=== PATIENT | male | born 1955 | race Caucasian/White ===

== ENCOUNTER 2016-08-22 15:49 | Emergency (ER) | payer OTHER ==
[~2016-08-22] VITALS: Ht 185.4 cm; Wt 113.4 kg
[~2016-08-22 15:49] MED LIST: BUPR-51 PO; QUET400T3 PO; SERT100T PO
--- NOTE | 2016-08-22 16:04 | NUR ---
PT AMBULATORY TO ER BED 08 AACCOMPANIED BY FAMILY. C/O ABDOMINAL DISCOMFORT, BLOATING SINCE LAST NIGHT. ALSO C/O N/V/D. GOWNED AND PLACED ON MONITOR. PT APPEARS ANXIOUS, HYPERVERBAL. VSS. AWAITING MD ELLIS.
--- NOTE | 2016-08-22 16:10 | NUR ---
STEVO GRULLON AT BEDSIDE FOR EVAL.
[2016-08-22] MEDS ORDERED: ONDANSETRON HCL/PF 4 MG/2 ML VIAL IV STA (16:14)
[2016-08-22] MEDS ORDERED: KETOROLAC TROMETHAMINE INJ 30 MG/ML VIAL IV STA (16:16)
--- NOTE | 2016-08-22 16:25 | NUR ---
IV LINE STARTED BLOOD DRAWN AND SENT TO LAB.
[2016-08-22] MEDS ORDERED: IV NS 0.9% 1,000 ML ONE (16:29)
[2016-08-22] MEDS ORDERED: IV SET PRIMARY 1 EA INFUS.SET MC ONE (16:29)
[2016-08-22] MEDS ORDERED: ONDANSETRON HCL/PF 4 MG/2 ML VIAL ONE (16:29)
[2016-08-22] MEDS ORDERED: KETOROLAC TROMETHAMINE INJ 30 MG/ML VIAL ONE (16:29)
[2016-08-22] MEDS ORDERED: ACETAMINOPHEN ES 500 MG TABLET ONE (16:29)
[2016-08-22] MEDS ORDERED: ACETAMINOPHEN ES 500 MG TABLET PO ONE (16:30)
[2016-08-22] MEDS ORDERED: IV NS 0.9% 1,000 ML BAG IV ONE (16:30)
[2016-08-22 16:35] LABS: BASOPHILS # (AUTO) 0.2 /CMM (0.0-0.2); HEMATOCRIT 46 % (39-51); HEMOGLOBIN 15.8 g/dL (13.5-17.5); LYMPHOCYTES # (AUTO) 0.4 /CMM (0.8-4.8); LYMPHOCYTES % (AUTO) 3.4 % (20.0-44.0); MEAN CORPUSCULAR HEMOGLOBIN 30 PG (26.0-33.0); MEAN CORPUSCULAR HGB CONC 34 g/dl (31.0-36.0); MEAN CORPUSCULAR VOLUME 88 fL (80-96); MONOCYTES # (AUTO) 0.6 /CMM (0.1-1.30); MONOCYTES % (AUTO) 5.5 % (2.0-12.0); NEUTROPHILS # (AUTO) 9.4 /CMM (1.8-8.9); NEUTROPHILS % (AUTO) 89.1 % (43.0-81.0); PLATELET COUNT (AUTO) 234 /CMM (150-450); RED BLOOD CELL COUNT(AUTO) 5.27 MIL/uL (4.5-6.0); WHITE BLOOD COUNT (AUTO) 10.6 K/uL (4.3-11.0)
[2016-08-22 16:47] LABS: CALCIUM, SERUM 8.8 mg/dL (8.5-10.1); CREATININE 1.6 mg/dL (0.6-1.3); POTASSIUM 3.7 mmol/L (3.5-5.1)
[2016-08-22 16:53] LABS: ALBUMIN 4.1 g/dL (3.4-5.0); BILIRUBIN,DIRECT 0.1 mg/dL (0.0-0.2); BILIRUBIN,TOTAL 0.8 mg/dL (0.2-1.0); TOTAL PROTEIN, SERUM 7.7 g/dL (6.4-8.2)
[2016-08-22 17:05] LABS: APPEARANCE,URINE Clear (CLEAR); BILIRUBIN,URINE Negative (NEGATIVE); BLOOD, URINE Negative Ery/uL (NEGATIVE); COLOR,URINE Yellow (YELLOW); KETONES,URINE Negative (NEGATIVE); LEUKOCYTE ESTERASE ,URINE Negative (NEGATIVE); NITRITE, URINE Negative (NEGATIVE); PH,URINE 5.5 (5.0-8.0); PROTEIN,URINE 30 mg/dl (NEGATIVE); UGLUCOSE Negative (NEGATIVE); UROBILINOGEN,URINE 0.2 EU/dL (0.2)
[2016-08-22 17:21] LABS: ADD URINE CULTURE NO; BACTERIA,URINE Rare /HPF (None Seen); RBC,URINE 0-2 /HPF (0-2); SQUAMOUS EPITHELIAL CELL,UR Rare /HPF (None Seen); WBC,URINE 0-2 /HPF (0-3)
[2016-08-22 17:41] VITALS: BP 134/92
--- NOTE | 2016-08-22 17:41 | NUR ---
Patient discharged to home in stable condition. Written and verbal after care instructions given. Patient verbalizes understanding of instruction.IV removed. Catheter intact and site benign. Pressure and 4x4 applied to site. No bleeding noted.
== END 2016-08-22 17:42 | disposition home or self-care (01) ==
LOC: ER 15:51
DX: R11.2 Nausea with vomiting, unspecified (principal); F32.9 Major depressive disorder, single episode, unspecified; I10 Essential (primary) hypertension
CPT/HCPCS: 36415; 80048-TC; 80076-TC; 81000-TC; 83690-TC; 85025-TC; A4606; J1885; J2405; J7030; Z7610

== ENCOUNTER 2018-07-18 01:50 | Emergency (ER) | payer MEDICARE, OTHER ==
[~2018-07-18] VITALS: Ht 185.4 cm; Wt 113.4 kg
[~2018-07-18 01:50] MED LIST changes: -QUET400T3 PO; +QUET400T5 PO
[2018-07-18 02:15] VITALS: BP 133/68
[2018-07-18] MEDS ORDERED: IBUPROFEN 400 MG TABLET ONE (02:22)
[2018-07-18] MEDS ORDERED: IBUPROFEN 400 MG TABLET PO ONE (02:30)
== END 2018-07-18 02:30 | disposition home or self-care (01) ==
LOC: ER 01:56
DX: M54.16 Radiculopathy, lumbar region (principal); I10 Essential (primary) hypertension; F32.9 Major depressive disorder, single episode, unspecified; F14.10 Cocaine abuse, uncomplicated; Z60.2 Problems related to living alone

== ENCOUNTER 2019-05-30 07:37 | Emergency (ER) | payer MEDICARE, MEDICAID ==
[~2019-05-30] VITALS: Ht 182.9 cm; Wt 99.8 kg
--- NOTE | 2019-05-30 07:47 | NUR ---
PT BIB SELF C/O HEADACHE AND DIZZINESS SINCE THIS MORNING , PT IS AAOX4, NOT IN RESPIRATORY DISTRESS, HOOKED TO MONITOR, KEPT RESTED AND COMFORTABLE, WILL CONTINUE TO MONITOR.
--- NOTE | 2019-05-30 07:52 | NUR ---
AT BEDSIDE FOR EVAL.
[2019-05-30] MEDS ORDERED: IV NS 0.9% 1,000 ML BAG IV ONE (08:00)
--- NOTE | 2019-05-30 08:00 | NUR ---
PT IV LINE ESTABLISHED, BLOOD DRAWN AND SENT TO LAB.
--- NOTE | 2019-05-30 08:05 | NUR ---
RUBBER PRESS TENDER AT BEDSIDE FOR XRAY.
[2019-05-30 08:07] LABS: BASOPHILS % (AUTO) 0.6 % (0.0-2.0); EOSINOPHILS % (AUTO) 2.4 % (0.0-6.0); HEMATOCRIT 39 % (39-51); HEMOGLOBIN 13.2 g/dL (13.5-17.5); LYMPHOCYTES # (AUTO) 1.6 /CMM (0.8-4.8); MEAN CORPUSCULAR HGB CONC 34 g/dl (31.0-36.0); MEAN CORPUSCULAR VOLUME 91 fL (80-96); MONOCYTES # (AUTO) 0.4 /CMM (0.1-1.30); MONOCYTES % (AUTO) 8.1 % (2.0-12.0); NEUTROPHILS # (AUTO) 3.2 /CMM (1.8-8.9); NEUTROPHILS % (AUTO) 58.9 % (43.0-81.0); PLATELET COUNT (AUTO) 229 /CMM (150-450); WHITE BLOOD COUNT (AUTO) 5.4 K/uL (4.3-11.0)
[2019-05-30 08:15] LABS: CALCIUM, SERUM 9.7 mg/dL (8.5-10.1); CREATININE 1.3 mg/dL (0.6-1.3); POTASSIUM 4.3 mmol/L (3.5-5.1)
[2019-05-30 08:21] LABS: BILIRUBIN,DIRECT 0.1 mg/dL (0.0-0.2); BILIRUBIN,TOTAL 0.4 mg/dL (0.2-1.0); TOTAL PROTEIN, SERUM 7.5 g/dL (6.4-8.2)
[2019-05-30 09:11] VITALS: BP 138/81
--- NOTE | 2019-05-30 09:11 | NUR ---
IV removed. Catheter intact and site benign. Pressure and 4x4 applied to site. No bleeding noted. Patient discharged to home in stable condition. Written and verbal after care instructions given. Patient verbalizes understanding of instruction.
== END 2019-05-30 09:11 | disposition home or self-care (01) ==
LOC: ER 07:37
DX: E86.0 Dehydration (principal); R42 Dizziness and giddiness; I44.4 Left anterior fascicular block; I10 Essential (primary) hypertension; F32.9 Major depressive disorder, single episode, unspecified; Z60.2 Problems related to living alone; Z79.899 Other long term (current) drug therapy
CPT/HCPCS: 36415; 71045; 80048; 80076; 85025; 93005; 96360; 99285; J7030

== ENCOUNTER 2019-08-17 03:19 | Emergency (ER) | payer MEDICARE, OTHER ==
[~2019-08-17] VITALS: Ht 185.4 cm; Wt 115.7 kg
[2019-08-17] MEDS: IV NS 0.9% 1,000 ML BAG IV ONE ×2 (03:34→04:37)
--- NOTE | 2019-08-17 03:43 | NUR ---
PATIENT CAME TO ER BIB RA TO BED 7 C/O WEAKNESS. 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 AAOX4. NO SOB. BREATHING EVENLY AND UNLABORED ON ROOM AIR. CONNECTED TO MONITOR.
[2019-08-17 03:49] LABS: BASOPHILS % (AUTO) 0.5 % (0.0-2.0); HEMATOCRIT 33 % (39-51); HEMOGLOBIN 11.1 g/dL (13.5-17.5); LYMPHOCYTES # (AUTO) 1.3 /CMM (0.8-4.8); LYMPHOCYTES % (AUTO) 19.1 % (20.0-44.0); MEAN CORPUSCULAR HGB CONC 34 g/dl (31.0-36.0); MEAN CORPUSCULAR VOLUME 91 fL (80-96); MONOCYTES # (AUTO) 0.8 /CMM (0.1-1.30); MONOCYTES % (AUTO) 11.1 % (2.0-12.0); NEUTROPHILS # (AUTO) 4.7 /CMM (1.8-8.9); NEUTROPHILS % (AUTO) 67.3 % (43.0-81.0); PLATELET COUNT (AUTO) 212 /CMM (150-450); RED BLOOD CELL COUNT(AUTO) 3.58 MIL/uL (4.5-6.0)
[2019-08-17 04:01] LABS: ALANINE AMINOTRANSFERASE 26 U/L (12-78); ALBUMIN 3.3 g/dL (3.4-5.0); ALKALINE PHOSPHATASE 98 U/L (46-116); ASPARTATE AMINOTRANSFERASE 13 U/L (15-37); BILIRUBIN,DIRECT 0.1 mg/dL (0.0-0.2); BILIRUBIN,TOTAL 0.6 mg/dL (0.2-1.0); CALCIUM, SERUM 8.6 mg/dL (8.5-10.1); CARBON DIOXIDE 29 mmol/L (21-32); CHLORIDE 104 mmol/L (98-107); CREATININE 2.5 mg/dL (0.6-1.3); GLUCOSE 185 mg/dL (74-106); POTASSIUM 3.7 mmol/L (3.5-5.1); SALICYLATE 0.5 mg/dL (2.8-20.0); SODIUM SERUM 139 mmol/L (136-145); TOTAL PROTEIN, SERUM 5.9 g/dL (6.4-8.2); UREA NITROGEN, BLOOD 24 mg/dL (7-18)
[2019-08-17 04:02] LABS: ACETAMINOPHEN 0 ug/ml (10-30); ALCOHOL, BLOOD < 3 mg/dL (0-0)
[2019-08-17 05:11] LABS: APPEARANCE,URINE Clear (CLEAR); BILIRUBIN,URINE SMALL (NEGATIVE); BLOOD, URINE Negative Ery/uL (NEGATIVE); COLOR,URINE Dark (YELLOW); KETONES,URINE Negative (NEGATIVE); LEUKOCYTE ESTERASE ,URINE Negative (NEGATIVE); NITRITE, URINE Negative (NEGATIVE); PH,URINE 5.5 (5.0-8.0); PROTEIN,URINE 30 mg/dl (NEGATIVE); UGLUCOSE Negative (NEGATIVE); UROBILINOGEN,URINE 0.2 EU/dL (0.2)
[2019-08-17 05:20] VITALS: BP 128/74
--- NOTE | 2019-08-17 05:20 | NUR ---
IV removed. Catheter intact and site benign. Pressure and 4x4 applied to site. No bleeding noted.
--- NOTE | 2019-08-17 05:20 | NUR ---
Patient discharged to home in stable condition. Written and verbal after care instructions given. Patient verbalizes understanding of instruction.
[2019-08-17 05:50] LABS: BACTERIA,URINE Few /HPF (None Seen); CALCIUM OXALATE CRYSTALS,UR Few /HPF (None Seen); MUCUS,URINE Moderate /LPF (None Seen); RBC,URINE 0-2 /HPF (0-2); SQUAMOUS EPITHELIAL CELL,UR Rare /HPF (None Seen)
== END 2019-08-17 05:21 | disposition home or self-care (01) ==
LOC: ER 03:19
DX: I95.1 Orthostatic hypotension (principal); R53.1 Weakness; F15.10 Other stimulant abuse, uncomplicated; R42 Dizziness and giddiness; F32.9 Major depressive disorder, single episode, unspecified; Z60.2 Problems related to living alone; Z79.899 Other long term (current) drug therapy
CPT/HCPCS: 36415; 80048; 80076; 80305; 80307; 80329; 81001; 82962; 85025; 87086; 93005; 96360; 96361; 99284; G0480; J7030 ×2; 81000-TC

== ENCOUNTER 2019-12-31 23:08 | Emergency (ER) | payer MEDICARE, OTHER ==
[~2019-12-31] VITALS: Ht 185.4 cm; Wt 117.9 kg
--- NOTE | 2019-12-31 23:27 | NUR ---
PT BIBSELF C/O R WRIST PAIN S/P SLIP AND FALL AT 7PM. PER ASSESSMENT VISHNUIES KO. GUARDADO AT BEDSIDE FOR EVAL. VSS.
[2019-12-31] MEDS ORDERED: IBUPROFEN 600 MG TABLET ONE (23:35)
--- NOTE | 2019-12-31 23:40 | NUR ---
RADIOLOGY AT BEDSIDE
[2020-01-01] MEDS ORDERED: IBUPROFEN 600 MG TABLET PO ONE
--- NOTE | 2020-01-01 00:15 | NUR ---
Patient discharged to home in stable condition. Written and verbal after care instructions given. Patient verbalizes understanding of instruction. ambulatory with a steady gait
[2020-01-01 00:16] VITALS: BP 127/64
== END 2020-01-01 00:16 | disposition home or self-care (01) ==
LOC: ER 23:11
DX: S60.221A Contusion of right hand, initial encounter (principal); I10 Essential (primary) hypertension; F32.9 Major depressive disorder, single episode, unspecified; Z60.2 Problems related to living alone; Z79.899 Other long term (current) drug therapy; W01.0XXA Fall on same level from slipping, tripping and stumbling without subsequent striking against object, initial encounter; Y93.89 Activity, other specified; Y92.091 Bathroom in other non-institutional residence as the place of occurrence of the external cause; Y99.8 Other external cause status
CPT/HCPCS: 73130-TC

== ENCOUNTER 2021-02-08 10:57 | Emergency (ER) | payer OTHER ==
[~2021-02-08] VITALS: Ht 185.4 cm; Wt 113.4 kg
[~2021-02-08 10:57] MED LIST changes: -BUPR-51 PO; +BUPR-54 PO
--- NOTE | 2021-02-08 11:02 | NUR ---
CALLED TO TRIAGE, NO ANSWER
[2021-02-08 11:10] VITALS: BP 131/79
--- NOTE | 2021-02-08 11:11 | NUR ---
TO ER BED 8, C/O NAUSEA, FEVER, CHILLS, EAR DISCOMFORT SINCE LAST NIGHT, TEMP NOT TAKEN AT HOME, DID NOT TAKE ANY MEDS EITHER, AFEBRILE UPON ARRIVAL, AAOX3, BREATHING EVEN AND NON LABORED, AWAITING MD ELLIS
[2021-02-08] MEDS ORDERED: CARB15DR12 EACH EAR (11:28)
[2021-02-08] MEDS ORDERED: ONDA4TAB11 PO (11:28)
--- NOTE | 2021-02-08 11:52 | NUR ---
Patient discharged to home in stable condition. Written and verbal after care instructions given. Patient verbalizes understanding of instruction.
== END 2021-02-08 11:52 | disposition home or self-care (01) ==
LOC: ER 11:08
DX: H61.21 Impacted cerumen, right ear (principal); K29.70 Gastritis, unspecified, without bleeding; I10 Essential (primary) hypertension; F32.9 Major depressive disorder, single episode, unspecified; Z60.2 Problems related to living alone; Z79.899 Other long term (current) drug therapy

== ENCOUNTER 2021-03-21 21:14 | Inpatient (IN) | payer OTHER ==
[~2021-03-21] VITALS: Ht 182.9 cm; Wt 113.4 kg
[~2021-03-21 21:14] MED LIST changes: +CARB15DR12 EACH EAR; +ONDA4TAB11 PO
--- NOTE | 2021-03-21 21:39 | NUR ---
BIBS WALKED IN TO ER UP TO THE [facility]. TO ER BED 1. AAOX4. NOT IN RESP DISTRESS. AMBULATORY. CAME IN FOR L SIDED CHEST PAIN X 1 HR DAY CARE HOME PROVIDER NON RADIATING PRESSURE AND TIGHT 5/10. PT SYNCOPIZE WHILE BEING TRIAGED, HE ALL OF A SUDDEN DROPPED THE THINGS HIS HOLDING AND HAD TO WAKE UP THE PATIENT. PT WAS NOTED COLD, CLAMMY AND DIAPHORETIC. EKG DONE AT BEDSIDE. HOOKED PN MONITOR AND MD AT BEDSIDE WHILE BEING TRAIGED.
--- NOTE | 2021-03-21 21:40 | NUR ---
18G IV STARTED IN [facility]. LABS AND CULTURES COLLECTED AND SENT TO LAB.
--- NOTE | 2021-03-21 21:43 | NUR ---
XRAY AT BEDSIDE
[2021-03-21 21:53] LABS: BASOPHILS # (AUTO) 0.1 K/uL (0.0-0.2); BASOPHILS % (AUTO) 0.8 % (0.0-2.0); EOSINOPHILS % (AUTO) 0.9 % (0.0-6.0); HEMATOCRIT 43 % (39-51); HEMOGLOBIN 14.3 g/dL (13.5-17.5); LYMPHOCYTES # (AUTO) 2.4 K/uL (0.8-4.8); LYMPHOCYTES % (AUTO) 33.1 % (20.0-44.0); MEAN CORPUSCULAR HGB CONC 34 g/dl (31.0-36.0); MEAN CORPUSCULAR VOLUME 92 fL (80-96); MONOCYTES # (AUTO) 0.7 K/uL (0.1-1.30); MONOCYTES % (AUTO) 9.7 % (2.0-12.0); NEUTROPHILS % (AUTO) 55.5 % (43.0-81.0); PLATELET COUNT (AUTO) 310 K/uL (150-450); RED BLOOD CELL COUNT(AUTO) 4.62 MIL/uL (4.5-6.0); WHITE BLOOD COUNT (AUTO) 7.1 K/uL (4.3-11.0)
[2021-03-21] MEDS ORDERED: IV NS 0.9% 1,000 ML BAG IV ONE ×2 (22:00→22:30)
[2021-03-21 22:02] LABS: CARBON DIOXIDE 26 mmol/L (21-32); CHLORIDE 100 mmol/L (98-107); GLUCOSE 275 mg/dL (74-106); POTASSIUM 3.8 mmol/L (3.5-5.1); SODIUM SERUM 136 mmol/L (136-145); UREA NITROGEN, BLOOD 25 mg/dL (7-18)
[2021-03-21] MEDS ORDERED: IOHEXOL-350 100 ML VIAL IV ONE ×2 (22:02→22:23)
[2021-03-21] MEDS ORDERED: IV NS 0.9% 250 ML IV ONE ×2 (22:02→22:23)
[2021-03-21 22:07] LABS: D-DIMER 0.7 mg/L(FEU (0.17-0.50)
[2021-03-21 22:13] LABS: ALANINE AMINOTRANSFERASE 25 U/L (12-78); ALBUMIN 3.9 g/dL (3.4-5.0); ALKALINE PHOSPHATASE 119 U/L (46-116); ASPARTATE AMINOTRANSFERASE 20 U/L (15-37); BILIRUBIN,DIRECT 0.1 mg/dL (0.0-0.2); BILIRUBIN,TOTAL 0.7 mg/dL (0.2-1.0); TOTAL PROTEIN, SERUM 7.6 g/dL (6.4-8.2)
[2021-03-21] MEDS ORDERED: VANCOMYCIN 1 GM in IV D5W 250 ML IV ONE (22:30)
[2021-03-21] MEDS ORDERED: CEFEPIME 1 GM in IV D5W 50 ML IV ONE (22:30)
[2021-03-21] MEDS ORDERED: ASPIRIN 325 MG TABLET PO ONE (22:30)
[2021-03-21] MEDS ORDERED: CEFEPIME 1 GM VIAL ONE (22:57)
[2021-03-21] MEDS ORDERED: ASPIRIN 325 MG TABLET ONE ×2 (22:57→23:08)
--- NOTE | 2021-03-21 23:39 | NUR ---
CLINICALS GIVEN TO KYA SALAZAR AT [facility]
[2021-03-21] MEDS ORDERED: VANCOMYCIN 1 GM VIAL ONE (23:40)
--- NOTE | 2021-03-22 00:42 | NUR ---
DR SHORT ON TELEPHONE WITH ZEUS GUARDADO
--- NOTE | 2021-03-22 00:51 | NUR ---
TELEPHONE ORDER FOR ADMISSIOPN RECEIVED FROM DR. SHORT
[2021-03-22 01:11] VITALS: BP 124/74
--- NOTE | 2021-03-22 01:25 | NUR ---
REPORT GIVEN TO DASHA
--- NOTE | 2021-03-22 01:49 | NUR ---
Justin tomas in ED - 03/22/21 at 0151 by BRITTNEE PT TRANSPORTED TO [id number] SHREDDER TENDER PER ACLS PROTOCOL WITHOUT INCIDENT. ALL V/S STABLE AT TRANSFER AND ALL BELONGINGS TRANSFERRED WITH PATIENT.
--- NOTE | 2021-03-22 01:51 | NUR ---
PT TRANSPORTED TO [facility] ON ELECTRICAL FITTER PER ACLS PROTOCOL WITHOUT INCIDENT. ALL V/S STABLE AT TRANSFER AND ALL BELONGINGS TRANSFERRED WITH PATIENT.
--- NOTE | 2021-03-22 01:52 | NUR ---
RN NOTE PT RECEIVED FROM E.R. VIA GURE[facility] ACCOMPANIED BY ER NURSE, BUT UPON ARRIVING, PT STATES HE CHANGED HIS MIND AND HE WANTS TO GO HOME, HE STATES HE FEELS BETTER. CHARGE NURSE MADE AWARE. PT EDUCATED ON RISKS OF LEAVING AGAINST MEDICAL ADVICE, PT STILL INSISTS TO LEAVE THE PREMISES, AND VERBALIZED HE UNDERSTANDS RISKS AND UNDERSTANDS THAT HE HAS ABNORMAL LAB RESULTS. EDUCATED/ADVISED TO GO TO THE [facility]ARE[facility] HOS[facility] FOR ANY EMERGENCIES. PT VERBALIZED UNDERSTANDING. CHARGE NURSE AWARE. WILL INFORM ADMITTING MD.
--- NOTE | 2021-03-22 02:02 | NUR ---
RN NOTE CHARGE NURSE NOTIFIED WITH NO FURTHER ORDERS.
--- NOTE | 2021-03-22 02:05 | NUR ---
RN NOTE PT SIGNED AMA AND STATES HE WILL CALL A [facility]AXI TO GO HOME. D/C'D IV SITE ON L-FA. PT SEEN LEAVING FLOOR WITH ALL PERSONAL BELONGINGS.
== END 2021-03-22 02:05 | disposition left against medical advice (07) | DRG 313 ==
LOC: ER 21:20 → TELE 03-22 00:05
PROVIDERS: ADMIT Internal Medicine; ATTEND Internal Medicine
DX: R07.9 Chest pain, unspecified (principal); E87.2 Acidosis; R61 Generalized hyperhidrosis; F32.A Depression, unspecified; I10 Essential (primary) hypertension; Z79.899 Other long term (current) drug therapy; K44.9 Diaphragmatic hernia without obstruction or gangrene; K57.30 Diverticulosis of large intestine without perforation or abscess without bleeding; I48.91 Unspecified atrial fibrillation; Z82.49 Family history of ischemic heart disease and other diseases of the circulatory system
CPT/HCPCS: 36415; 71045-TC; 71250-TC; 80048-TC; 80076-TC; 83605-TC; 83880; 84484-TC; 85025-TC; 85378-TC; 85730-TC; 87040-TC; 87081-TC; G0378; J0692; J3370; J7030; J7050; J7060; Q9967